=== PATIENT | male | born 1970 | race Caucasian/White ===

== ENCOUNTER → 2018-10-23 10:03 | Outpatient (CLI) | payer OTHER, MEDICAID, SELFPAY ==
[2018-10-23 11:02] LABS: Appearance Urine UA CLEAR; Bilirubin Urine UA NEGATIVE (NEGATIVE); Color Urine UA YELLOW; Glucose Urine UA NEGATIVE (Negative); Ketones Urine UA NEGATIVE (NEGATIVE); Leukocyte Esterase Urine UA NEGATIVE (NEGATIVE); Nitrite Urine UA NEGATIVE (Negative); Occult Blood Urine UA NEGATIVE (Negative); Protein Urine UA NEGATIVE (Negative); Urobilinogen Urine UA 0.2 E.U./dL (0.2); pH Urine UA 6.5 (4.5-8.0)
[2018-10-23 11:30] LABS: Alanine Aminotransferase 97 IU/L (21-72); Albumin 4.7 g/dL (3.5-5.0); Albumin Globulin Ratio 1.4 (1.0-2.8); Alkaline Phosphatase 79 U/L (38-126); Aspartate Aminotransferase 63 IU/L (17-59); Bilirubin Total 0.6 mg/dL (0.2-1.3); Blood Urea Nitrogen 14 mg/dL (9-20); Calcium 9.5 mg/dL (8.4-10.2); Carbon Dioxide 23 mmol/L (22-32); Chloride 104 mmol/L (98-107); Cholesterol 180 mg/dL (140-199); Estimated Glomerular Filt Rate > 60.0 mL/min (>60); Globulin 3.4 g/dL (1.7-4.1); Glucose 102 mg/dL (70-100); HDL Cholesterol 36 mg/dL (40-60); HEMOLYSIS < 15 (0-50); LDL Cholesterol Calculated 106 mg/dL (<100); Potassium 4.2 mmol/L (3.4-5.1); Sodium 139 mmol/L (137-145); Total Protein 8.1 g/dL (6.3-8.2); Triglycerides 188 mg/dL (35-150)
[2018-10-23 11:36] LABS: Add Manual Diff / Slide Review NO; Basophils Absolute Auto 100 /uL (0-100); Basophils Percent Auto 2.1 % (0-2); Eosinophils Absolute Auto 100 /uL (0-450); Eosinophils Percent Auto 2.9 % (2-4); Hematocrit 44.3 % (41-53); Hemoglobin 15.2 g/dL (13.5-17.5); Lymphocytes Absolute Auto 1300 /uL (1100-4500); Lymphocytes Percent Auto 27.3 % (25-40); Mean Corpuscular HGB Conc 34.2 % (30-36); Mean Corpuscular Hemoglobin 32.5 PG (26-34); Mean Corpuscular Volume 94.8 fL (80-100); Monocytes Absolute Auto 400 /uL (0-900); Neutrophils Absolute Auto 2800 /uL (1500-7000); Neutrophils Percent Auto 58.7 % (50-75); Platelet Count 251 X10^3/uL (150-400); Red Blood Cell Count 4.67 X10^6/uL (4.5-5.9); White Blood Cell Count 4.8 X10^3/uL (4.5-11.0)
[2018-10-23 11:59] LABS: Prostate Specific Antigen 0.378 ng/mL (0.10-4.00)
[2018-10-23 12:01] LABS: Thyroid Stimulating Hormone 1.18 uIU/mL (0.47-4.68)
[2018-10-24 14:34] LABS: Alpha Fetoprotein 4.3 ng/mL (< 6.1)
== END ==
PROVIDERS: PCP Family Medicine; Visit Provider Family Medicine
DX: I10 Essential (primary) hypertension (principal); Z51.81 Encounter for therapeutic drug level monitoring; Z86.19 Personal history of other infectious and parasitic diseases
CPT/HCPCS: 36415; 80053; 80061; 81003; 82105; 84153; 84443; 85025

== ENCOUNTER → 2019-03-13 12:36 | Outpatient (CLI) | payer OTHER, MEDICAID, SELFPAY ==
[2019-03-13 14:01] LABS: Add Manual Diff / Slide Review NO; Basophils Absolute Auto 100 /uL (0-100); Eosinophils Absolute Auto 300 /uL (0-450); Eosinophils Percent Auto 4.3 % (2-4); Hematocrit 45.7 % (41-53); Hemoglobin 15.7 g/dL (13.5-17.5); Lymphocytes Absolute Auto 1800 /uL (1100-4500); Lymphocytes Percent Auto 26.8 % (25-40); Mean Corpuscular HGB Conc 34.3 % (30-36); Mean Corpuscular Hemoglobin 31.9 PG (26-34); Mean Corpuscular Volume 93.1 fL (80-100); Monocytes Absolute Auto 700 /uL (0-900); Neutrophils Absolute Auto 3900 /uL (1500-7000); Neutrophils Percent Auto 57.9 % (50-75); Platelet Count 229 X10^3/uL (150-400); Red Blood Cell Count 4.91 X10^6/uL (4.5-5.9); Red Cell Distribution Width 12.9 % (11.6-14.8); White Blood Cell Count 6.7 X10^3/uL (4.5-11.0)
[2019-03-13 15:13] LABS: Alanine Aminotransferase 23 IU/L (21-72); Albumin 4.7 g/dL (3.5-5.0); Albumin Globulin Ratio 1.3 (1.0-2.8); Alkaline Phosphatase 108 U/L (38-126); Aspartate Aminotransferase 30 IU/L (17-59); Bilirubin Total 0.8 mg/dL (0.2-1.3); Blood Urea Nitrogen 20 mg/dL (9-20); Calcium 9.8 mg/dL (8.4-10.2); Carbon Dioxide 26 mmol/L (22-32); Chloride 104 mmol/L (98-107); Estimated Glomerular Filt Rate > 60.0 mL/min (>60); Globulin 3.5 g/dL (1.7-4.1); Glucose 93 mg/dL (70-100); HEMOLYSIS < 15 (0-50); Potassium 4.6 mmol/L (3.4-5.1); Sodium 140 mmol/L (137-145); Total Protein 8.2 g/dL (6.3-8.2)
== END ==
PROVIDERS: PCP Family Medicine; Visit Provider Hospitalist
DX: R11.0 Nausea (principal)
CPT/HCPCS: 36415; 80053; 85025

== ENCOUNTER → 2020-06-08 09:55 | Outpatient (CLI) | payer OTHER, MEDICAID, SELFPAY ==
[2020-06-08 10:05] LABS: Bacteria Urine None Seen; RBC Urine None Seen (0-5/HPF); WBC Urine None Seen (0-5/HPF)
[2020-06-08 10:37] LABS: Appearance Urine UA CLEAR; Bilirubin Urine UA NEGATIVE (NEGATIVE); Color Urine UA YELLOW; Glucose Urine UA NEGATIVE (Negative); Ketones Urine UA NEGATIVE (NEGATIVE); Leukocyte Esterase Urine UA NEGATIVE (NEGATIVE); Nitrite Urine UA NEGATIVE (Negative); Occult Blood Urine UA NEGATIVE (Negative); Protein Urine UA NEGATIVE (Negative); Urobilinogen Urine UA 0.2 E.U./dL (0.2); pH Urine UA 5.5 (4.5-8.0)
[2020-06-08 10:43] LABS: Urine Comments Microscopic Normal
[2020-06-08 10:44] LABS: Culture Indicated Urine Cult Not Indicated
[2020-06-08 10:48] LABS: Alanine Aminotransferase 32 IU/L (<50); Albumin 4.1 g/dL (3.5-5.0); Albumin Globulin Ratio 1.3 (1.0-2.8); Alkaline Phosphatase 87 U/L (38-126); Aspartate Aminotransferase 31 IU/L (17-59); BUN Creatinine Ratio 13.6 (6-22); Bilirubin Total 0.5 mg/dL (0.2-1.3); Blood Urea Nitrogen 12 mg/dL (9-20); Calcium 9.3 mg/dL (8.4-10.2); Carbon Dioxide 25 mmol/L (22-32); Chloride 107 mmol/L (98-107); Cholesterol 161 mg/dL (140-199); Estimated Glomerular Filt Rate > 60.0 mL/min (>60); Globulin 3.1 g/dL (1.7-4.1); Glucose 98 mg/dL (70-100); HDL Cholesterol 35 mg/dL (40-60); HEMOLYSIS < 15 (0-50); LDL Cholesterol Calculated 93 mg/dL (<100); Potassium 4.3 mmol/L (3.4-5.1); Sodium 138 mmol/L (137-145); Total Protein 7.2 g/dL (6.3-8.2); Triglycerides 165 mg/dL (35-150)
[2020-06-08 10:51] LABS: Hemoglobin A1C% w Est Avg Glu 5.7 % (4.0-6.0)
[2020-06-08 10:59] LABS: Creatinine Urine Random 72.1 mg/dL
[2020-06-08 11:04] LABS: Microalbumi Creatinin Ratio Ur 41.6 ug/mg CR (<30)
[2020-06-08 16:01] LABS: HIV 1 & 2 Ab/Ag 4th Gen Combo NEGATIVE (NEGATIVE)
[2020-06-09 05:08] LABS: RPR Screen Non Reactive (Non Reactive)
== END ==
PROVIDERS: PCP Family Medicine; Referring Provider Family Medicine; Visit Provider Family Medicine
DX: I10 Essential (primary) hypertension (principal); A64 Unspecified sexually transmitted disease
CPT/HCPCS: 36415; 80053; 80061; 81001; 82043; 82570; 83036; 86592; 87389; 87491; 87591

== ENCOUNTER 2020-07-16 14:15 | Outpatient (RCR) | payer OTHER, MEDICAID, SELFPAY ==
--- NOTE | 2020-07-14 15:00 | PT.OPPOC ---
Physical, Occupational & Speech Therapy At [facility] Current Diagnoses Sciatica, left side (07/14/20) Visit Care Team Role Provider Type Ramin Ochoa MD Attending Provider Physician Primary Care Provider Referring Provider Specialty: Family Practice Address: [address] [place] [address] Email: [email or web address] Plan Of Care PT-OP-T Assessment and Plan Start: 07/14/20 08:49 Freq: Status: Active Protocol: Document 07/14/20 14:14 AMB (Rec: 07/15/20 09:45 AMB [email or web address]) Physical Therapy Assessment Rehab Potential Rehabilitation Potential Good Evaluation Complexity Number of Personal Factors/Comorbidities 1-2 Number of Body Systems Impaired 4 or More Clinical Presentation at Evaluation Evolving Impairments Impairments Functional Activities, Functional Mobility,Posture, ROM,Strength Goals Three Impairment lifting STG Duration 4 weeks Ferryboat Operator Cable Goal (LTG) Tayo will lift his children from the floor into the car without an increase in leg pain. LTG Duration 8 weeks Two Impairment sitting tolerance Short Term Goal (STG) Tayo will sit in a standard chair for 30 minutes without an increase in baseline pain. STG Duration 4 weeks Ferryboat Operator Cable Goal (LTG) Tayo will drive for 1 hour with 6/10 pain or less. LTG Duration 8 weeks One Impairment ROM Short Term Goal (STG) Tayo will improve his lumbar flexion AROM to 60 degrees without an increase in his baseline pain. STG Duration 4 weeks Alf Goal (LTG) Tayo will improve his straight leg raise to 70 degrees without an increase in his baseline pain to show improved sciatic mobility. LTG Duration 8 weeks Assessment Summary Assessment Tayo is presenting with radiating back pain, worst in his buttocks and going down into his left foot. He was instructed in a beginning HEP and will benefit from continued instruction in progression of core stability working into lumbar extension and hip mobility. 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 Physical Therapy Plan Frequency and Duration Frequency of Treatment 2x/Week Duration of Treatment 8 weeks Plan of Care Start Date 07/14/20 Plan of Care End Date 09/08/20 Therapeutic Interventions Therapeutic Interventions Home Exercise Program,Joint Mobilizations,Manual Therapy, Neuromuscular Re-education, Self-Care/Home Management, Therapeutic Activities, Therapeutic Exercises Modalities Cold Pack/Ice Massage,Electric Stimulation,Hot Packs Next Visit Focus/Plan Next Note Type Treatment Note Next Visit Plan Progress extension ROM, begin TA progression Plan of Care Dates Plan of Care Start Date 07/14/20 Plan of Care End Date 09/08/20 Electronically Signed by: Marilynn Brown, PT 07/15/20 [id number] Please Sign and Return: I have reviewed this Plan of Care and certify that the skilled therapy services above are required to meet the patient?s needs. Physician Signature Date Printed Name and Credentials Clinical Instructor Signature Printed Name and Credentials
--- NOTE | 2020-07-14 16:00 | PT.OIE ---
Current Diagnoses Sciatica, left side (07/14/20) Past Medical History (Last Updated 06/08/20 @ 09:54 by Ramin Ochoa MD) Chickenpox (Resolved) Fatty liver (Chronic) Gastroesophageal reflux disease (Chronic) Hepatitis C (Chronic) Hx of drug abuse (Resolved) Hypertension (Chronic 2012) Low back pain (Chronic) Sciatica, left side (Acute) Sleep apnea (Chronic) STI (sexually transmitted infection) (Acute) Past Surgical History (Last Reviewed 06/08/20 @ 08:35 by Ramin Ochoa MD) No history of previous surgery (Resolved) Visit Care Team Role Provider Type Ramin Ochoa MD Attending Provider Physician Primary Care Provider Referring Provider Specialty: [facility] Address: [address] [place] [address] Email: [email or web address] Physical Therapy Initial Evaluation PT-OP-A Visit Information Start: 07/14/20 08:49 Freq: Status: Active Protocol: Document 07/14/20 14:14 AMB (Rec: 07/15/20 09:45 AMB [email or web address]) Out-Patient Physical Therapy Visit Information Visit Information Visit Type Initial Evaluation Visit Start Time 14:15 Visit Stop Time 15:00 Total Visit Minutes 45 Visit Number 1 PT-OP-B Current Condition Start: 07/14/20 08:49 Freq: Status: Active Protocol: Document 07/14/20 14:17 AMB (Rec: 07/14/20 14:34 AMB [id number]) Current Condition History of Current Condition Onset Date a few years ago Current Complaints L sciatica History of Current Condition Pt first noted sciatica in 2018 - L sided- and that seemed to resolve itself. This flare up has lasted a few months. History of low back pain for years. Movement helps. Driving and sleeping is challenging. Pain is worse in the morning, getting shoes and socks on is hard in the morning. Goes down into the calf and reports numbness into the foot. Sharp pain in the buttocks with bending and sitting. Back and lateral leg pain. Has 2 and 3 year old kids and that can irritate the pain when bending forward to pick them up. Treatment Goals Patient/Caregiver Goals Reduce pain so that he can drive, sleep without pain Prior Functional Status Baseline Function- ADL's Independent Baseline Function- Mobility Independent Baseline Function- Work/School Worked as semi truck driver Current Functional Impairments (Reported) Functional Limitations- ADL's Pain with driving or sitting even for a few minutes Personal Factors Other Personal Factors That May Effect Prior history of intravenous Therapy/Recovery drug use, hypertension, works as a semi truck driver PT-OP-C Subjective Start: 07/14/20 08:49 Freq: Status: Active Protocol: Document 07/14/20 14:14 AMB (Rec: 07/15/20 09:45 AMB [email or web address]) Patient Questionnaires Oswestry Low Back Index Oswestry Score 40 Oswestry Impairment 40 to 59% Impaired (Score 40- 59) OP-PT Pain Assessment Comments Pain Comments 6/10 in left hip/buttucks and down posteriolateral leg. PT-OP-G Mobility & Gait Start: 07/14/20 08:49 Freq: Status: Active Protocol: Document 07/14/20 14:14 AMB (Rec: 07/15/20 09:45 AMB [email or web address]) OP Gait Assessment Comments Gait Comments Reduced trunk rotation with ambulation PT-OP-J Posture/Palpation/Skin Start: 07/14/20 08:49 Freq: Status: Active Protocol: Document 07/14/20 14:14 AMB (Rec: 07/15/20 09:45 AMB [email or web address]) Posture Evaluation Comments Posture Comments Flat lumbar spine Palpation Assessment Location One Palpation Details Tenderness over piriformis on L, no tenderness over PT-OP-K Range of Motion Start: 07/14/20 08:49 Freq: Status: Active Protocol: Document 07/14/20 14:15 AMB (Rec: 07/15/20 10:10 AMB [id number]) Lumbar Spine Range of Motion Lumbar Spine Active Degrees Testing Position Standing Flexion 40 Extension 30 Lateral Flexion Left 30 Lateral Flexion Right 30 ROM Limitations Pain Comments flexion most painful Hip Goniometric Range of Motion Hip Left Passive Straight Leg Raise 57 Right Passive Straight Leg Raise 80 PT-OP-M Strength Start: 07/14/20 08:49 Freq: Status: Active Protocol: Document 07/14/20 14:15 AMB (Rec: 07/15/20 11:12 AMB [email or web address]) Hip Strength Hip Manual Muscle Testing Right Flexion (L2) 4+ Good+ Extension (S1) 4+ Good+ Abduction 4+ Good+ Adduction 4+ Good+ Left Flexion (L2) 4+ Good+ Extension (S1) 4+ Good+ Abduction 4+ Good+ Adduction 4+ Good+ Knee Strength Knee Manual Muscle Testing Right Flexion (S2) 5 Normal Extension (L3) 5 Normal Left Flexion (S2) 5 Normal Extension (L3) 5 Normal Ankle/Foot Strength Ankle and Foot Manual Muscle Testing Right Dorsiflexion (L4) 5 Normal Left Dorsiflexion (L4) 5 Normal PT-OP-Q Treatments Start: 07/14/20 08:49 Freq: Status: Active Protocol: Document 07/14/20 14:15 AMB (Rec: 07/15/20 11:12 AMB [email or web address]) Therapeutic Exercises Supine Exercises 2 Supine Exercise Name piriformis stretch Reps/Minutes 30x2 1 Supine Exercise Name active hamstring stretch Reps/Minutes 2x10 Prone Exercises 1 Prone Exercise Name prone press up Reps/Minutes 10 PT-OP-T Assessment and Plan Start: 07/14/20 08:49 Freq: Status: Active Protocol: Document 07/14/20 14:14 AMB (Rec: 07/15/20 09:45 AMB [email or web address]) Physical Therapy Assessment Rehab Potential Rehabilitation Potential Good Evaluation Complexity Number of Personal Factors/Comorbidities 1-2 Number of Body Systems Impaired 4 or More Clinical Presentation at Evaluation Evolving Impairments Impairments Functional Activities, Functional Mobility,Posture, ROM,Strength Goals Three Impairment lifting STG Duration 4 weeks Seed Laboratory Assistant Goal (LTG) Tayo will lift his children from the floor into the car without an increase in leg pain. LTG Duration 8 weeks Two Impairment sitting tolerance Short Term Goal (STG) Tayo will sit in a standard chair for 30 minutes without an increase in baseline pain. STG Duration 4 weeks [facility] Goal (LTG) Tayo will drive for 1 hour with 6/10 pain or less. LTG Duration 8 weeks One Impairment ROM Short Term Goal (STG) Tayo will improve his lumbar flexion AROM to 60 degrees without an increase in his baseline pain. STG Duration 4 weeks Seed Laboratory Assistant Goal (LTG) Tayo will improve his straight leg raise to 70 degrees without an increase in his baseline pain to show improved sciatic mobility. LTG Duration 8 weeks Assessment Summary Assessment Tayo is presenting with radiating back pain, worst in his buttocks and going down into his left foot. He was instructed in a beginning HEP and will benefit from continued instruction in progression of core stability working into lumbar extension and hip mobility. 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 Physical Therapy Plan Frequency and Duration Frequency of Treatment 2x/Week Duration of Treatment 8 weeks Plan of Care Start Date 07/14/20 Plan of Care End Date 09/08/20 Therapeutic Interventions Therapeutic Interventions Home Exercise Program,Joint Mobilizations,Manual Therapy, Neuromuscular Re-education, Self-Care/Home Management, Therapeutic Activities, Therapeutic Exercises Modalities Cold Pack/Ice Massage,Electric Stimulation,Hot Packs Next Visit Focus/Plan Next Note Type Treatment Note Next Visit Plan Progress extension ROM, begin TA progression
--- NOTE | 2020-07-16 15:46 | PT.OTN ---
Current Diagnoses Sciatica, left side (07/16/20) Physical Therapy Treatment Note PT-OP-A Visit Information Start: 07/14/20 08:49 Freq: Status: Active Protocol: Document 07/16/20 15:26 AMB (Rec: 07/16/20 15:46 AMB [email or web address]) Out-Patient Physical Therapy Visit Information Visit Information Visit Type Treatment Note Visit Start Time 14:15 Visit Stop Time 15:00 Total Visit Minutes 45 Visit Number 2 PT-OP-B Current Condition Start: 07/14/20 08:49 Freq: Status: Active Protocol: Document 07/14/20 14:17 AMB (Rec: 07/14/20 14:34 AMB [id number]) Current Condition History of Current Condition Onset Date a few years ago Current Complaints L sciatica History of Current Condition Pt first noted sciatica in 2018 - L sided- and that seemed to resolve itself. This flare up has lasted a few months. History of low back pain for years. Movement helps. Driving and sleeping is challenging. Pain is worse in the morning, getting shoes and socks on is hard in the morning. Goes down into the calf and reports numbness into the foot. Sharp pain in the buttocks with bending and sitting. Back and lateral leg pain. Has 2 and 3 year old kids and that can irritate the pain when bending forward to pick them up. Treatment Goals Patient/Caregiver Goals Reduce pain so that he can drive, sleep without pain Prior Functional Status Baseline Function- ADL's Independent Baseline Function- Mobility Independent Baseline Function- Work/School Worked as fuel oil truck driver Current Functional Impairments (Reported) Functional Limitations- ADL's Pain with driving or sitting even for a few minutes Personal Factors Other Personal Factors That May Effect Prior history of intravenous Therapy/Recovery drug use, hypertension, works as a fuel oil truck driver PT-OP-C Subjective Start: 07/14/20 08:49 Freq: Status: Active Protocol: Document 07/16/20 15:26 AMB (Rec: 07/16/20 15:46 AMB [email or web address]) OP-PT Subjective Patient Comments Patient Comments Pt did his exercises today, sore with stretching but ok. Still pretty sore with sitting /driving, but otherwise ok. PT-OP-G Mobility & Gait Start: 07/14/20 08:49 Freq: Status: Active Protocol: Document 07/14/20 14:14 AMB (Rec: 07/15/20 09:45 AMB [email or web address]) OP Gait Assessment Comments Gait Comments Reduced trunk rotation with ambulation PT-OP-J Posture/Palpation/Skin Start: 07/14/20 08:49 Freq: Status: Active Protocol: Document 07/14/20 14:14 AMB (Rec: 07/15/20 09:45 AMB [email or web address]) Posture Evaluation Comments Posture Comments Flat lumbar spine Palpation Assessment Location One Palpation Details Tenderness over piriformis on L, no tenderness over PT-OP-K Range of Motion Start: 07/14/20 08:49 Freq: Status: Active Protocol: Document 07/14/20 14:15 AMB (Rec: 07/15/20 10:10 AMB [id number]) Lumbar Spine Range of Motion Lumbar Spine Active Degrees Testing Position Standing Flexion 40 Extension 30 Lateral Flexion Left 30 Lateral Flexion Right 30 ROM Limitations Pain Comments flexion most painful Hip Goniometric Range of Motion Hip Left Passive Straight Leg Raise 57 Right Passive Straight Leg Raise 80 PT-OP-M Strength Start: 07/14/20 08:49 Freq: Status: Active Protocol: Document 07/14/20 14:15 AMB (Rec: 07/15/20 11:12 AMB [email or web address]) Hip Strength Hip Manual Muscle Testing Right Flexion (L2) 4+ Good+ Extension (S1) 4+ Good+ Abduction 4+ Good+ Adduction 4+ Good+ Left Flexion (L2) 4+ Good+ Extension (S1) 4+ Good+ Abduction 4+ Good+ Adduction 4+ Good+ Knee Strength Knee Manual Muscle Testing Right Flexion (S2) 5 Normal Extension (L3) 5 Normal Left Flexion (S2) 5 Normal Extension (L3) 5 Normal Ankle/Foot Strength Ankle and Foot Manual Muscle Testing Right Dorsiflexion (L4) 5 Normal Left Dorsiflexion (L4) 5 Normal PT-OP-Q Treatments Start: 07/14/20 08:49 Freq: Status: Active Protocol: Document 07/16/20 15:26 AMB (Rec: 07/16/20 15:46 AMB [email or web address]) Therapeutic Exercises Supine Exercises 3 Supine Exercise Name TA progression Reps/Minutes 10 ea Comments november then SLR 2 Supine Exercise Name piriformis stretch Reps/Minutes 30x2 1 Supine Exercise Name active hamstring stretch Reps/Minutes 2x10 Prone Exercises 1 Prone Exercise Name prone press up Reps/Minutes 10 Sidelying Exercises 1 Sidelying Exercise Name hip abd Reps/Minutes SLR 10 Manual Therapy Treatment Soft Tissue Mobilization 1 Body Location L piriformis, QL, glute med Mobilization Type Myofascial Release,Sustained Pressure Manual Traction long axis traction Body Position Hooklying Comments left LE PT-OP-R Modalities Start: 07/14/20 08:49 Freq: Status: Active Protocol: Document 07/16/20 15:26 AMB (Rec: 07/16/20 15:46 AMB [email or web address]) Electric Stimulation Electric Stimulation Interferential Current (IFC) Body Location L low back Duration (Minutes) 15 Combined With Heat/Cold Hot Pack Comments hooklying PT-OP-T Assessment and Plan Start: 07/14/20 08:49 Freq: Status: Active Protocol: Document 07/16/20 15:26 AMB (Rec: 07/16/20 15:46 AMB [email or web address]) Physical Therapy Assessment Assessment Summary Assessment Tayo tolerated exercises well, good prone press up. Check in with how IFC went at next visit. Poor core and hip stability. Physical Therapy Plan Next Visit Focus/Plan Next Note Type Treatment Note Next Visit Plan Progress extension ROM, begin TA progression
--- NOTE | 2020-08-03 08:19 | PT-OP ANOTE ---
Pt no showed appt, called and pt states he thought it was tomorrow and is apologetic, confirms he will be here for next appointment.
--- NOTE | 2020-08-05 07:52 | PT-OP ANOTE ---
Pt no showed appt again, left voicemail asking pt to call back to discuss attendance, as this was his 3rd no show. Explained policy of 3 no shows and closing case, asked pt to call back to discuss this.
--- NOTE | 2020-08-14 10:15 | PT.OPDS ---
Current Diagnoses Sciatica, left side (07/16/20) Visit Care Team Role Provider Type Ramin Ochoa MD Attending Provider Physician Primary Care Provider Referring Provider Specialty: Family Practice Address: [address] [place] [address], [facility] Email: [email or web address] Visit Number Visit Number 2 Discharge Summary PT-OP-B Current Condition Start: 07/14/20 08:49 Freq: Status: Active Protocol: Document 07/14/20 14:17 AMB (Rec: 07/14/20 14:34 AMB [id number]) Current Condition History of Current Condition Onset Date a few years ago Current Complaints L sciatica History of Current Condition Pt first noted sciatica in 2018 - L sided- and that seemed to resolve itself. This flare up has lasted a few months. History of low back pain for years. Movement helps. Driving and sleeping is challenging. Pain is worse in the morning, getting shoes and socks on is hard in the morning. Goes down into the calf and reports numbness into the foot. Sharp pain in the buttocks with bending and sitting. Back and lateral leg pain. Has 2 and 3 year old kids and that can irritate the pain when bending forward to pick them up. Treatment Goals Patient/Caregiver Goals Reduce pain so that he can drive, sleep without pain Prior Functional Status Baseline Function- ADL's Independent Baseline Function- Mobility Independent Baseline Function- Work/School Worked as truck driver rubbish collector Current Functional Impairments (Reported) Functional Limitations- ADL's Pain with driving or sitting even for a few minutes Personal Factors Other Personal Factors That May Effect Prior history of intravenous Therapy/Recovery drug use, hypertension, works as a truck driver rubbish collector PT-OP-C Subjective Start: 07/14/20 08:49 Freq: Status: Active Protocol: Document 07/16/20 15:26 AMB (Rec: 07/16/20 15:46 AMB [email or web address]) OP-PT Subjective Patient Comments Patient Comments Pt did his exercises today, sore with stretching but ok. Still pretty sore with sitting /driving, but otherwise ok. PT-OP-G Mobility & Gait Start: 07/14/20 08:49 Freq: Status: Active Protocol: Document 07/14/20 14:14 AMB (Rec: 07/15/20 09:45 AMB [email or web address]) OP Gait Assessment Comments Gait Comments Reduced trunk rotation with ambulation PT-OP-J Posture/Palpation/Skin Start: 07/14/20 08:49 Freq: Status: Active Protocol: Document 07/14/20 14:14 AMB (Rec: 07/15/20 09:45 AMB [email or web address]) Posture Evaluation Comments Posture Comments Flat lumbar spine Palpation Assessment Location One Palpation Details Tenderness over piriformis on L, no tenderness over PT-OP-K Range of Motion Start: 07/14/20 08:49 Freq: Status: Active Protocol: Document 07/14/20 14:15 AMB (Rec: 07/15/20 10:10 AMB [id number]) Lumbar Spine Range of Motion Lumbar Spine Active Degrees Testing Position Standing Flexion 40 Extension 30 Lateral Flexion Left 30 Lateral Flexion Right 30 ROM Limitations Pain Comments flexion most painful Hip Goniometric Range of Motion Hip Left Passive Straight Leg Raise 57 Right Passive Straight Leg Raise 80 PT-OP-M Strength Start: 07/14/20 08:49 Freq: Status: Active Protocol: Document 07/14/20 14:15 AMB (Rec: 07/15/20 11:12 AMB [email or web address]) Hip Strength Hip Manual Muscle Testing Right Flexion (L2) 4+ Good+ Extension (S1) 4+ Good+ Abduction 4+ Good+ Adduction 4+ Good+ Left Flexion (L2) 4+ Good+ Extension (S1) 4+ Good+ Abduction 4+ Good+ Adduction 4+ Good+ Knee Strength Knee Manual Muscle Testing Right Flexion (S2) 5 Normal Extension (L3) 5 Normal Left Flexion (S2) 5 Normal Extension (L3) 5 Normal Ankle/Foot Strength Ankle and Foot Manual Muscle Testing Right Dorsiflexion (L4) 5 Normal Left Dorsiflexion (L4) 5 Normal PT-OP-T Assessment and Plan Start: 07/14/20 08:49 Freq: Status: Active Protocol: Document 08/14/20 10:14 AMB (Rec: 08/14/20 10:15 AMB [id number]) Physical Therapy Plan Discharge Physical Therapy Discharge Reasons Patient Request Discharge Comments The patient's father and he asked to cancel all of his remaining appointments. Since he was seen so few times, he did not meet his goals.
== END 2020-08-21 10:11 ==
LOC: PHYS 14:15
PROVIDERS: PCP Family Medicine; Referring Provider Family Medicine; Visit Provider Family Medicine
DX: M54.32 Sciatica, left side (principal)
CPT/HCPCS: 97014; 97110; 97140; 97161; G0283

== ENCOUNTER → 2020-12-31 16:11 | Outpatient (CLI) | payer OTHER, MEDICAID, SELFPAY ==
[2020-12-31] MEDS: COVID-19 VACC #1, MRNA(MOD) 100 MCG/0.5 ML VIAL IM (16:20)
== END ==
PROVIDERS: PCP Family Medicine; Visit Provider Internal Medicine
DX: Z23 Encounter for immunization (principal)
CPT/HCPCS: 0011A; 91301

== ENCOUNTER → 2021-01-28 09:05 | Outpatient (CLI) | payer OTHER, MEDICAID, SELFPAY ==
[2021-01-28] MEDS: COVID-19 VACC #2, MRNA(MOD) 100 MCG/0.5 ML VIAL IM (09:15)
== END ==
PROVIDERS: PCP Family Medicine; Visit Provider Internal Medicine
DX: Z23 Encounter for immunization (principal)
CPT/HCPCS: 0012A; 91301

== ENCOUNTER → 2021-03-10 09:02 | Outpatient (CLI) | payer OTHER, MEDICAID, SELFPAY ==
[2021-03-10 10:11] LABS: Add Manual Diff / Slide Review NO; Basophils Absolute Auto 100 /uL (0-100); Eosinophils Absolute Auto 400 /uL (0-450); Eosinophils Percent Auto 6.9 % (2-4); Hematocrit 42.8 % (41-53); Hemoglobin 14.6 g/dL (13.5-17.5); Lymphocytes Absolute Auto 1400 /uL (1100-4500); Lymphocytes Percent Auto 22.7 % (25-40); Mean Corpuscular HGB Conc 34.2 % (30-36); Mean Corpuscular Volume 93.5 fL (80-100); Monocytes Absolute Auto 800 /uL (0-900); Monocytes Percent Auto 12.9 % (3-14); Neutrophils Absolute Auto 3600 /uL (1500-7000); Neutrophils Percent Auto 56.5 % (50-75); Platelet Count 212 X10^3/uL (150-400); Red Blood Cell Count 4.57 X10^6/uL (4.5-5.9); White Blood Cell Count 6.3 X10^3/uL (4.5-11.0)
[2021-03-10 10:50] LABS: Alanine Aminotransferase 36 IU/L (<50); Albumin 4.2 g/dL (3.5-5.0); Albumin Globulin Ratio 1.2 (1.0-2.8); Alkaline Phosphatase 119 U/L (38-126); Aspartate Aminotransferase 36 IU/L (17-59); Bilirubin Total 0.5 mg/dL (0.2-1.3); Blood Urea Nitrogen 15 mg/dL (9-20); Calcium 9.7 mg/dL (8.4-10.2); Carbon Dioxide 24 mmol/L (22-32); Chloride 105 mmol/L (98-107); Estimated Glomerular Filt Rate > 60.0 mL/min (>60); Globulin 3.6 g/dL (1.7-4.1); Glucose 100 mg/dL (70-100); HEMOLYSIS < 15 (0-50); Lipase 89 U/L (23-300); Potassium 4.6 mmol/L (3.4-5.1); Sodium 137 mmol/L (137-145); Total Protein 7.8 g/dL (6.3-8.2)
[2021-03-10 11:56] LABS: Folate 9.6 ng/mL (2.76-20.0); Vitamin B12 328 pg/mL (239-931)
[2021-03-13 12:09] LABS: HBsAg Screen Negative (Negative); Hepatitis A Antibody IgM Negative (Negative); Hepatitis B Core Antibody IgM Negative (Negative); Hepatitis C Antibody >11.0 s/co ratio (0.0-0.9); Hepatitis C Quant HCV Not Detected IU/mL (.)
== END ==
PROVIDERS: PCP Family Medicine; Referring Provider Family Medicine; Visit Provider Family Medicine
DX: B19.20 Unspecified viral hepatitis C without hepatic coma (principal); I10 Essential (primary) hypertension; K76.0 Fatty (change of) liver, not elsewhere classified; G47.33 Obstructive sleep apnea (adult) (pediatric)
CPT/HCPCS: 36415; 80053; 80074; 82607; 82746; 83690; 85025